=== PATIENT | female | born 1985 | race Caucasian/White ===

== ENCOUNTER 2018-07-04 21:25 | Emergency (ER) | payer OTHER ==
[~2018-07-04] VITALS: Ht 160 cm; Wt 127.9 kg
[2018-07-04 23:22] LABS: CALCIUM 8.6 mg/dL (8.5-10.1); CARBON DIOXIDE 28.6 mmol/L (21-32); CHLORIDE SERUM 103 mmol/L (98-107); CREATININE SERUM 0.8 mg/dL (0.6-1.0); GFR1 > 60 mL/min; GLUCOSE SERUM 155 mg/dL (74-106); POTASSIUM SERUM 3.5 mmol/L (3.5-5.1); SODIUM SERUM 140 mmol/L (136-145)
[2018-07-04 23:27] LABS: ALBUMIN 3.4 g/dL (3.4-5.0); ALKALINE PHOSPHATASE 83 U/L (46-116); ALT/SGPT 36 U/L (14-59); AST/SGOT 17 U/L (15-37); BILIRUBIN TOTAL 0.23 mg/dL (0.20-1.00); TOTAL PROTEIN, SERUM 7.5 g/dL (6.4-8.2)
[2018-07-04 23:35] LABS: T3 TOTAL 1.06 ng/mL
[2018-07-04 23:37] LABS: FREE T4 0.95 ng/dL (0.76-1.46); FREE THYROXINE INDEX 3.1 ug/dL (1.4-4.5); T4(THYROXINE) 9.5 ug/dL (4.7-13.3)
[2018-07-04 23:39] LABS: BASOPHIL % 0.3 % (0-2); PLATELET COUNT 336 x10^3mcL (130-400); RED CELL DISTRIBUTION WIDTH 13.6 % (11.5-14.5)
[2018-07-05 00:11] LABS: UA SPECIFIC GRAVITY 1.025 (1.005-1.035); microscopic required? YES; urine erythrocyte NEGATIVE (NEGATIVE)
[2018-07-05 01:20] VITALS: BP 113/64
== END 2018-07-05 01:28 | disposition home or self-care (01) ==
LOC: ED 21:25
PROVIDERS: Emergency Medicine
DX: G43.909 Migraine, unspecified, not intractable, without status migrainosus (principal); N39.0 Urinary tract infection, site not specified; E66.9 Obesity, unspecified; I10 Essential (primary) hypertension; E11.9 Type 2 diabetes mellitus without complications; E03.9 Hypothyroidism, unspecified; Z90.49 Acquired absence of other specified parts of digestive tract; Z68.43 Body mass index [BMI] 50.0-59.9, adult; Z98.890 Other specified postprocedural states
CPT/HCPCS: 84439; J0696; J1200; J2765; J7030